=== PATIENT | male | born 2005 | race Caucasian/White ===

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

== ENCOUNTER 2025-04-03 08:28 | Emergency (ER) | payer OTHER, SELFPAY ==
--- NOTE | ~2025-04-03 | XR_ITS ---
CLINICAL HISTORY: shoulder pain rad down arm 4 view left shoulder Comparison: None provided Findings: No fracture or dislocation. No significant osteoarthritis. IMPRESSION: 1. No acute findings. This document has been electronically signed by: Johnathan Hill DO on 04/03/2025 10:19:39
[2025-04-03 08:31] VITALS: BP 138/86; PULSE 59; RESP 16; TEMP 36.7; O2SAT 99; BMI 25.9
--- NOTE | 2025-04-03 08:43 | ED_ITS ---
HPI - Extremity Problem General Chief complaint: Extremity Injury, Upper Stated complaint: shoulder pain rad into chest Time Seen by Provider: 04/03/25 08:37 Source: patient Mode of arrival: ambulatory Limitations: no limitations History of Present Illness ED Provider: SALENA MARIN PA-C HPI Narrative: 20 year old male presents to the ED today for evaluation of left shoulder pain x5 months. Pain initially began after he spent the day kayaking. Since this time has had difficulty/ pain with moving the left shoulder. Reports waking up with tingling down his LUE. He was evaluated at a few months ago where they noted concern for rotator cuff injury. He was not referred to ortho at that time. Denies blunt injury/trauma. Denies fever, chills, rashes. Related Data Home Medications ?Medication ?Instructions ?Recorded ?Confirmed acetaminophen 500 mg capsule 1,000 mg PO Q6H PRN 04/1104/18/25 esomeprazole magnesium 40 mg 40 mg PO BID 04/11/25 capsule,delayed release ibuprofen 200 mg tablet 400 mg PO Q8H 04/11/2504/18 Allergies Allergy/AdvReac Type Severity Reaction Status Date / Time amoxicillin Allergy Severe Anaphylaxis Verified 04/18/25 15:13 Review of Systems Review of Systems: Yes all other systems are reviewed and are negative PMFSH Past Medical History Attestation statement: The following information was validated with the patient. Source: old records reviewed and nursing notes reviewed Medical History Healthcare maintenance Chronic abdominal pain Annual physical exam Thyroid nodule LUQ abdominal pain LLQ abdominal pain Gait disturbance Unsteadiness on feet Family History Family History Paternal Grandfather HTN (hypertension) Social History Social History Household Members: Family Housing: House Alcohol intake: current Alcohol intake frequency: a few times a month Patient Tobacco Use Status: Never used Tobacco Substance Use Type: Marijuana service: No Current occupational status: employed Cognitive needs: No Hearing needs: No Vision needs: No Physical Exam Vital Signs: Vital Signs: Last Vital Signs Temp 98.1 F 04/03/25 10:39 Pulse 59 04/03/25 10:39 Resp 16 04/03/25 10:39 BP 138/86 04/03/25 10:39 Pulse Ox 99 04/03/25 10:39 O2 Del Method Room Air 04/03/25 10:39 BMI result Body Mass Index 25.9 vital signs stable General: Well appearing, in no acute distress. Skin: Warm, dry, intact. No rashes or lesions. Head: Normocephalic, atraumatic. EENT: Hearing is intact b/l. Conjunctiva clear. PERRLA. EOM intact. Moist mucous membranes.? Neck: Supple without LAD Cardiac: Chest wall symmetric. RRR Lungs: Normal respiratory effort without accessory muscle use. CTA bilaterally Ext: +no noted swelling, skin changes to left shoulder/upper extremity. FROM intact to L shoulder w/ pain induced on active extension/ abduction, no limitation. 2+radial pulse. Neuro: AOx3. Normal speech. Ambulating with steady gait Course Course Course Narrative: xr left shoulder without fracture, dislocation. Medicated w/ valium and prednisone with improvement. Likely rotator cuff injury. placed in sling. plan to send muscle relaxer and prednisone. advised ortho follow up - referral provided. Patient has remained stable throughout ED visit today. Discussed worrisome signs and symptoms and when to return to the ED. All questions answered at this time. Patient is agreeable with disposition and stable for discharge. Medications Administered Discontinued Medications Generic Name Dose Route Start Last Admin Trade Name Freq PRN Reason Stop Dose Admin Diazepam 5 mg 04/03/25 09:32 04/03/25 09:59 Diazepam 5 Mg Tablet PO 04/03/25 09:33 5 mg ONCE ONE Administration Prednisone 40 mg 04/03/25 09:33 04/03/25 09:59 Prednisone 20 Mg Tablet PO 04/03/25 09:34 40 mg ONCE ONE Administration Medical Decision Making Medical Decision Making MDM Narrative: 20 year old male presents to the ED today for evaluation of left shoulder pain x5 months. vital signs stable, afebrile. On exam, no noted swelling, skin changes to left shoulder/upper extremity. FROM intact to L shoulder w/ pain induced on active extension/ abduction, no limitation. 2+radial pulse. Differential diagnosis includes msk sprain/strain, contusion, fracture, dislocation, tendonitis, bursitis Unlikely NV compromise, threat to limb, compartment syndrome. Plan for xrs, pain control and re-evaluation. Differential Diagnosis Differential Diagnoses: The differential diagnosis associated with the presentation includes as above. Admission/Observation not indicated Independent Interpretation I performed an independent interpretation of an: Plain X-Ray Interpretation: xr left shoulder w/o fracture Radiology Impression Discussion of test interpretation with radiology: I have reviewed the radiologist's reading. Radiologist Impression: Procedure(s): XR shoulder LT min 2V Accession Number(s): [id number] cc: Physician,Unknown ; Salena Marin~ Reason for Exam: shoulder pain rad down arm CLINICAL HISTORY: shoulder pain rad down arm 4 view left shoulder Comparison: None provided Findings: No fracture or dislocation. No significant osteoarthritis. IMPRESSION: 1. No acute findings. This document has been electronically signed by: Johnathan Hill DO on 04/03/2025 10:19:39 Independent Historian Clinical information obtained from an independent historian. History obtained from or confirmed by: Parent Prescription Management I considered prescription management with: Pain Medication Social Determinants Patient?s care significantly limited by Social Determinants of Health including: Other Social Determinant of Health Procedures Orthopedic Splinting/Casting Injury #1: Side: left Upper Extremity Injury Location: shoulder Upper Extremity Immobilizer: sling/shoulder immobilizer Critical Care Time Critical Care Time Critical Care Time: No Discharge Plan Discharge Clinical Impression: Left shoulder pain Patient Disposition: Home, Self-Care Instructions: Rotator Cuff Injury (ED) Additional Instructions: You were evaluated in the ED today for left shoulder pain. The x-ray of your left shoulder does not demonstrate an acute fracture. I have suspicion for rotator cuff injury. I am sending prednisone, a steroid, to your pharmacy. Take this as prescribed over the next 4 days starting tomorrow as you received a dose in the ED today. Methocarbamol is a muscle relaxer that has been sent to your pharmacy. You may take this as needed for muscle pain. I have placed your arm in a sling for comfort. Make sure to remove your arm and move your shoulder around multiple times throughout the day to prevent frozen shoulder. Please follow up with either PCP or landscape specialist, you will probably require an MRI. I have provided you with a referral. Call them to establish care. They will not call you. Return with any new or worsening symptoms. In the case of an emergency call 911. Prescriptions: No Action esomeprazole magnesium 40 mg capsule,delayed release(DR/EC) 40 mg PO BID ibuprofen 200 mg tablet 400 mg PO Q8H acetaminophen 500 mg capsule 1,000 mg PO Q6H PRN Referrals: [facility] [place] [facility] [Provider Group] Physician,Unknown J [Primary Care Provider, Medical] Stand Alone Forms: Work/School Release Interventions: ED Discharge Assessment Last Done: 04/03/25 10:39 Discharge Date/Time: 04/03/25 10:39 Print Language: Kiswahili
--- OUTSIDE RECORDS SUMMARY | 2025-04-03 09:47 | XMS_ITS | Encounter Summary ---
Author Organization [facility] Address [address] [place] [address] Phone Care Team Providers Care Director Of Laboratory Operations Name Role Phone Dalila Snyder MD Primary Care Provider [phone] Encounter Details Date Type Department Care Team (Late st Contact Info) Description 02/05/2017 Conversion Encounter [facility] [place] [address] [place] [address] Social History Tobacco Use Types Packs/Day Years Used Date Smoking Tobacco: Never Assessed Sex and Gender Information Value Date Recorded Sex Assigned at Male 12/02/2019 11:05 AM EDT Legal Sex Male 5:10 PM EDT Gender Identity Male 12/02/2019 11:05 AM EDT Sexual Orientation Straight 12/02/2019 11 :05 AM EDT documented as of this encounter Plan of Treatment Not on file documented as of this encounter Visit Diagnoses Not on filedocumented in this encounter Care Teams Director Of Laboratory Operations Relationship Specialty Start Date End Date Dalila Snyder MD [address] [place] [address] PCP - General Pediatrics 08/07/22 04/06/24 documented as of this encounter
--- OUTSIDE RECORDS SUMMARY | 2025-04-03 09:47 | XMS_ITS | Clinical Summary ---
Author Organization [facility] Address [address] [place] [address] Phone Care Team Providers Care Inseminator Name Role Phone Unavailable Primary Care Provider Unavailabl e Allergies Active Allergy Reactions Criticality Noted Date Comments Amoxicillin Rash Low Medications ibuprofen 200 MG capsule Take 200 mg by mouth every 6 (six) hours as needed. Active esomeprazole 40 MG capsule Take 40 mg by mouth 2 (two) times a day. 09/10/2023 Active Active Problems Problem Noted Date Diagnosed Date Epigastric pain 02/24/2022 Overview (03/07/2024): LIDIA & IBS s/s yet unintentional wt loss of 8lb; GI labs obtained essentially unremarkable x albumin 5.3 & unclear signficance; pt place on H2 muna and advise f/u w/ his new PCP in 6 weeks [facility] visit on 08/18/2022 for abdominal pain, postprandial abdominal bloating and weight loss. Dx with GERD - avoid dietary triggers and start Omeprazole. Sent for H pylori testing, transglutaminase to r/o celiac, vitamin D, RAST allergen testing. avoid lactose, low FODMAP diet follow up in 5 weeks Seen by GI on 01/13, normal EGD with negative biopsy for celiac on 01/23. Continue Prilosec. Discontinue vaping, marijuana, and alcohol use. 03/07/2024 Has f/u with GI in August. Assessment & Plan (03/07/2024 4:12 PM EDT): Followed by [facility] GI for abdominal pain, postprandial abdominal bloating and weight loss. Dx with GERD - avoid dietary triggers. normal EGD with negative biopsy for celiac on 01/23. Continue Prilosec. Discontinue vaping, marijuana, and alcohol use. Continue Esomeprazole 40 mg bid. f/u with GI in August. Assessment & Plan (03/02/2023 9:22 AM EDT): [facility] GI visit on 08/18/2022 for abdominal pain, postprandial abdominal bloating and weight loss. Dx with GERD - avoid dietary triggers and start Omeprazole. Sent for H pylori testing, transglutaminase to r/o celiac, vitamin D, RAST allergen testing. avoid lactose, low FODMAP diet follow up in 5 weeks Seen by GI on 01/13, normal EGD with negative biopsy for celiac on 01/23. Continue Prilosec. Discontinue vaping, marijuana, and alcohol use. Assessment & Plan (02/24/2022 9:08 AM EDT): LIDIA & IBS s/s yet unintentional wt loss of 8lb; GI labs obtained essentially unremarkable x albumin 5.3 & unclear signficance; pt place on H2 muna and advise f/u w/ his new PCP in 6 weeks Resolved Problems Problem Noted Date Diagnosed Date Resolved Date Sunburn, blistering 11/24/2023 03/07/20 24 Assessment & Plan (11/24/2023 4:49 PM EDT): Antibiotic ointment with bandage applied. Continue dressing changes bid until healed. Follow up if s/s of infection as reviewed. Avoid sun exposure until healed then sunscreen. Reviewed importance of sunscreen and reapplying every 90 minutes. Disease due to severe acute respiratory syndrome coronavirus 2 (SARS-CoV-2) 06/30/202202/20 Overview (08/28/2022): 06/30/2022 Problem added by Discern Expert Acne vulgaris 10/22/2017 03/02/2023 Assessment & Plan (10/29/2018 3:08 PM EDT): Uses stridex and noxema Lactose intolerance 10/19/2017 03/02/20 23 Overview (12/02/2019): Significant family history lactose intolerance. Discussed diet and import of not drinking too much milk Recommended trial off milk and using lactaid products. Assessment & Plan (12/02/2019 11:49 AM EDT): Mom describeds significant gassiness and drinking lots of milk. Significant family history lactose intolerance. Discussed diet and import of not drinking too much milk Recommended trial off milk and using lactaid products. Assessment & Plan (10/19/2017 5:35 PM EDT): Handout given and discussed Acute suppurative otitis med ia of both ears without spontaneous rupture of tympanic membranes 03/06/2017 10/19/2017 Immunizations Immunization Administration Dates Next Due DTaP 5 05/03/2007, 5,2003,07/20,2003 HPV Vaccine 9 Valent 09/27/2015 HPV, Quadrivalent 09/18/2014 Hep A, ped/adol 09/27/2015,09/18/2014 Hep B, ped/adol 2003,2003,2003 Hib (HbOC) 06/27/2004 Hib (PRP-T) 2003,2003,2003 IPV 05/03/2007, 4,2003,05/22 Influenza, injectable, quadr ivalent, preservative free 05/04/2020 Influenza, injectable, trivalent 05/08/2008,02/21,06/27/2004 MMR 03/21/2004 MMRV 05/03/2007 Meningococcal B Trumenba 02/19/2022,12/05/2020 Meningococcal Conj (Menactra) MCV4P 12/02/2019,0 09/18/2014 Pneumococcal Conjugate 06/27/2004,2003,06/2002 Tdap 02/25/2023,09/18/2014 Varicella 03/21/2004 Family History Medical History Relation Name Comments Arthritis Maternal Grandfather Hyperlipidemia Maternal Grandfather Hypertension Maternal Grandfather Aneurysm Paternal Grandfather Emphysema Paternal Grandfather Heart disease (Premature) Paternal Grandfather Hypertension Paternal Grandfather Kidney disease Paternal Grandfather Prostate cancer Paternal Grandfather Hyperlipidemia Paternal Grandmother Hypertension Paternal Grandmother Relation Name Status Comments Father Sajan Mcleod Alive Father: vis ual problems Maternal Grandfather Mother Crissy Mcleod Alive Mother: Alive and well Other Family history of *Heart Disease, Family history of Cancer -breast, No family history of *Thrombophilia, Family history of Hypertension, Family history of *Dental caries, No family history of *Sudden /NE under 55, Family history of Hyperlipidemia, No family history of *CVA/Stroke Paternal Grandfather Paterna l grandfather: Coronary artery disease, premature Paternal Grandmother Sister Brenda Izquierdo Alive Sister: Edouard e and well Social History Tobacco Use Types Packs/Day Years Used Date Smoking Tobacco: Never Smokeless Tobacco: Never Tobacco Cessation:Counseling Given: Yes Alcohol Use Standard Drinks/Week Comments Never 0 (1 standard drink = 0.6 oz pur e alcohol) Hunger/Food Answer Date Recorded In the last 12 months, did y ou or your family ever eat less than you felt you should because there wasn't enough money for food? No 03/02/2023 Stable Housing Answer Date Recorded Are you worried that in the next 2 months you may not have stable housing? No 03/02/2023 Transportation Concerns Answer Date Rec orded In the last 12 months, have you or your family ever had to go without healthcare because you didn't have a way to get there? No 03/02/2023 Hazards in Home Answer Date Recorded Think about the place you li ve. Do you have problems with any of the following? Pests (mice or roaches), mold, no/not working smoke detectors, water leaks, no window guards. No 2022 Financing Utilities Answer Date Recorde d In the last 12 months, has t he electric, gas, oil, or water company threatened to shut off your services in your home? No 03/02/2023 Safety at Home Answer Date Recorded Are you or your family worried about feeling saf e in your home? No 03/02/2023 Outside Support Answer Date Recorded Do you feel that you need mo re support from other people or programs to help you care for yourself or your family? No 03/02/2023 Understanding Health Concerns Answer Da te Recorded Do you need help understandi ng your or your child's healthcare needs (diagnosis, medications, plan, etc.)? No 03/02/2023 Financing Health Concerns Answer Date R ecorded In the last 12 months, was t here a time when your child needed to see a doctor or get medications or supplies but could not because of cost? No 03/02/2023 Missing School or Work Answer Date Ye rded Did you or your child miss s chool or work because of a health problem that could have been avoided? No 03/02/2023 Sex and Gender Information Value Date Recorded Sex Assigned at Male 12/02/2019 11:05 AM EDT Legal Sex Male 5:10 PM EDT Gender Identity Male 12/02/2019 11:05 AM EDT Sexual Orientation Straight 12/02/2019 11 :05 AM EDT Last Filed Vital Signs Vital Sign Reading Time Taken Comments Blood Pressure 120/70 03/07/2024 4:12 PM EDT man ual Pulse 61 03/07/2024 3:27 PM EDT Temperature 36.2 C (97.1 F) 03/07/2024 3:27 PM EDT Respiratory Rate - - Oxygen Saturation - - Inhaled Oxygen Concentration - - Weight 94.6 kg (208 lb 9.6 oz) 03/07/2024 3:27 P M EDT Height 185.4 cm (6' 1 ) 03/07/2024 3:27 PM EDT Body Mass Index 27.52 03/07/2024 3:27 PM EDT Plan of Treatment Health Maintenance Due Date Last Done Comments Influenza Vaccines (#1) 2025 05/04/20 20, 05/08/2008, 2007, Additional history exists COVID-19 Vaccine (3 - 2024-2 6 season) 2025 11/01/2020, 10/11/2020 DTaP,Tdap,and Td Vaccines (8 - Td or Tdap) 02/25/2033 02/25/2023, 09/18/2014, 05/03/2007, Additional history exists Hepatitis B Vaccines Completed 2003, 2003, 2003 HIB Vaccines Completed 06/27/2004, 06/2003, 2003, Additional history exists Pneumococcal Vaccine Completed 06/27/2004, 2003, 2003 IPV Vaccines Completed 05/03/2007, 06/2003, 2003, Additional history exists MMR Vaccines Completed 05/03/2007, 03/21/2004 Varicella Vaccines Completed 05/03/2007, 03/21/2004 HPV Vaccines Completed 09/27/2015, 09/18/2014 Hepatitis A Vaccines Completed 09/27/2015, 09/19/19 15 Meningococcal Vaccine Completed 12/02/2019, 015 Men B Vaccine Completed 02/19/2022, 12/05/2020 Insurance COMMERCIAL
[2025-04-03 10:39] VITALS: BP 138/86; PULSE 59; RESP 16; TEMP 36.7; O2SAT 99
== END 2025-04-03 10:39 | disposition home or self-care (01) ==
PROVIDERS: Emergency Provider Emergency Medicine
DX: M25.512 Pain in left shoulder (principal); Z87.828 Personal history of other (healed) physical injury and trauma
CPT/HCPCS: 73030; 99283; 99284

== ENCOUNTER → 2025-04-03 08:45 | Outpatient (BNV) | payer OTHER, SELFPAY | PROVIDERS: Emergency Provider Emergency Medicine; Visit Provider Radiology Diagnostic Radiology | DX: M25.512 Pain in left shoulder (principal) | CPT/HCPCS: 73030 ==

== ENCOUNTER 2025-04-11 10:50 | Outpatient (AMB) | payer OTHER, SELFPAY ==
--- NOTE | 2025-04-11 10:52 | MHC.OFFVIS ---
Vital Signs 04/11/25 10:57 Height 6 ft 2 in Weight 201 lb BMI 25.8 Handedness Right Intake Visit Reasons: ED F/U: Left shoulder pain DOI ~November Intake Note: Elroy is a 20 year old right hand dominant male who presents today for an emergency department follow up for his left shoulder injury. Patient reports his symptoms initially started after a day of kayaking. States that since this day he has had difficulty and pain with movement of the left shoulder. He states his ED visit was the day his pain was at its worse. He also was seen at [facility] urgent care and they told him they believe it is a pinched nerve, says they were unsure and advised he still follow up with today's visit. He is experiencing tingling that starts in the left shoulder radiating down into his elbow, then it stops and starts tingling again in the wrist. He is having continued intermittent pain with lifting and certain ROM. Pain is located along the superior and lateral aspects of his shoulder. Takes Tylenol and/or ibuprofen as needed for pain, with mild to moderate relief. He has been out of work since 04/03/25 due to needed evaluation from our office. Reports at work he has had incidents where his shoulder freezes with lifting above head or reaching causing him to have increased pain. He is due to start formal physical therapy later this week. Allergies amoxicillin Allergy (Severe, Verified 04/11/25 10:57) Anaphylaxis Medication List - Last Reconciled 04/11/25 by Marcelino Stapleton MD acetaminophen 1,000 mg PO Q6H PRN esomeprazole magnesium 40 mg PO BID ibuprofen 400 mg PO Q8H PFSH Family History (Updated 08/18/22 @ 15:36 by Jean Barksdale) Paternal Grandfather HTN (hypertension) Social History (Updated 04/11/25 @ 11:03 by RODDY Knott) Household Members: Family Alcohol intake: current Alcohol intake frequency: a few times a month Patient Tobacco Use Status: Never used Tobacco e-Cigarette/Vaping Use: Currently Using Current occupational status: employed 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[employer] Physical Exam Vital Signs: BMI result Body Mass Index 25.8 Const Other: Well-nourished well-developed very friendly male awake alert and oriented x3 in no acute distress Extrem Other: Left shoulder examination shows almost full range of motion when compared to his right shoulder, 5/5 strength with supraspinatus testing, positive impingement signs, no instability Results Reviewed Results Reviewed: X-rays of the patient's left shoulder show mild acromioclavicular joint narrowing, a type 2 acromion, no acute bony abnormalities Assessment & Plan Assessment & Plan (1) Left shoulder pain: Code(s): M25.512 - Pain in left shoulder Category: Medical Plan Elroy presents with left shoulder pain due to impingement syndrome as well as neck pain which radiates into his left arm possibly due to cervical stenosis. I did give the patient a prescription for a Medrol Dosepak. Will begin physical therapy as scheduled. The do's and don'ts of lifting were discussed at length with the patient. The patient can return to work once his symptoms have improved. Will contact me prior to his follow-up appointment in 2-3 months should his symptoms worsen in any way. I spent 20 minutes in reviewing the patient's records and imaging studies, seeing the patient and documenting in the medical record. Medications: New methylprednisolone (Medrol (Mihai)) PO PER PKG DIR 21 ea 0RF Coding Level of Care Code New Pt Level 3 (44298) Complex EM visit Add On G2211 Diagnoses Left shoulder pain M25.512
[2025-04-11 10:57] VITALS: BMI 25.8
--- OUTSIDE RECORDS SUMMARY | 2025-04-11 13:15 | XMS_ITS | Encounter Summary ---
Author Organization [facility] Address [address] [place] [address] Phone Care Team Providers Care New Accounts Representative Name Role Phone Dalila Snyder MD Primary Care Provider [phone] Encounter Details Date Type Department Care Team (Late st Contact Info) Description 02/05/2017 Conversion Encounter [facility] [place] [address] [place] [address] Social History Tobacco Use Types Packs/Day Years [...] on filedocumented in this encounter Care Teams New Accounts Representative Relationship Specialty Start Date End Date Dalila Snyder MD [address] [place] [address] PCP - General Pediatrics 08/07/22 04/06/24 documented as of this encounter
--- OUTSIDE RECORDS SUMMARY | 2025-04-11 13:16 | XMS_ITS | Clinical Summary ---
Author Organization [facility] Address [address] [place] [address] Phone Care Team Providers Care College Specialist Name Role Phone Unavailable Primary Care Provider [...] w/ his new PCP in 6 [place] [facility] [place] for abdominal pain, [...] Plan (03/07/2024 4:12 PM EDT): Followed by [facility] for abdominal pain, postprandial abdominal bloating and weight loss. Dx with GERD - avoid dietary triggers. normal EGD with negative biopsy for celiac on 01/23. Continue Prilosec. Discontinue vaping, marijuana, and alcohol use. Continue Esomeprazole 40 mg bid. f/u with GI in August. Assessment & Plan (03/02/2023 9:22 AM EDT): [facility] [place] on 08/18/2022 for abdominal pain, [...] *Dental caries, No family history of *Sudden /[place] under 55, Family history of Hyperlipidemia, No [...]
--- OUTSIDE RECORDS SUMMARY | 2025-04-11 13:16 | XMS_ITS | Data Portability ---
Author Organization [facility] [address] [place] [address] Assessment No assessment recorded. Plan of Treatment Reminders Order Date Submit Date Provider Last Modified By Organization Details Last Modified Time Details Appointments None recorded. Lab None recorded. Referral physical therapist referral - cervical stabilizati on program 2024 025 [email or web address] Not available 13:12:59 Procedures None recorded. Surgeries None recorded. Imaging XR, cervical spine, 1 view - new pt 2 views c spine rm u/c 1 2024 025 [email or web address] [facility], [address], [address], [place], [address], 5 13:12:59 XR, shoulder, 2 or more view - new pt 4 views left shoulder rm u/c 1 2024 025 [email or web address] [facility], [address], [address], [place], [address], 5 13:12:59 Medication Orders cyclobenzap rine 5 mg tablet 2024 025 [email or web address] [id number], [address], [place], [address], 5 13:12:59 Patient TargetsNo targets recorded. Patient InstructionsNo instructions recorded. Reason for Referral Physical Therapist Referral for Nerve root disorder cervical stabilization program Referring Physician: Yair Thomas, Orthopedic Surgery, Encounter Date: 04/05/2025 Results Created Date Observation Date Name Description Value Unit Range Abnormal Flag Note LastModifiedBy Organization Detail LastModifiedTime 04/05/2004/05/2025 XR, seth yue, 2 or more view http:/ [email or web address] ?Encry pted=s hAaTro YD8dLq bEUv6g %2BXZw aYqtaq 0bqfl% 2Fg9IQ a4ajBk vP9nXo QUaueC m3YtLR FvZlgJ JJ8mAn HZtai3 1n4115 AC0Klb XWMUKW uKiQtr MwF INTERFACE [facility] [address], [place], [address], 04/05/2025 09:28:30 04/05/2004/05/2025 XR, seth yue, 2 or more view http:/ [email or web address] ?Encry pted=s hAaTro YD8dLq bEUv6g %2BXZw aYqtaq 0bqfl% 2Fg9IQ a4ajBk vP9nXo QUaueC m3YtLR FvZlgJ JJ8mAn HZtai3 5a6208 AC0Klb XWMUKW uKiQtr MwF INTERFACE [facility] [address], [place], [address], 04/05/2025 09:28:32 04/05/2004/05/2025 XR, cervi ruy spine , 1 view http:/ [email or web address] ?Encry pted=s hAaTro YD8dLq bEUv6g %2BXZw aYqtaq 0bqfl% 2Fg9IQ a4ajBk vP9nXo QUaueC m3YtLR FvZlgJ JJ8mAn HZtai3 6b7734 AC0Klb XWMUqu nKiQtr MwF INTERFACE [facility] [address], [place], [address], 04/05/2025 09:45:51 04/05/20 25 04/05/2025 XR, cervi ruy spine , 1 view http:/ [email or web address] ?Encry pted=s hASuno YD8dLq bEUv6g %2BXZw aYqtaq 0bqfl% 2Fg9IQ a4ajBk vP9nXo QUaueC m3YtLR FvZlgJ JJ8mAn HZtai3 5s0906 AC0Klb XWMUqu nKiQtr MwF INTERFACE [facility] [address] [facility] [address], [place], [address], 04/05/2025 09:45:52 Result Notes Documentation Provider Name and Address Organization Details Recorded Time Xr, Shoulder, 2 Or More View : [email or web address]? Encrypted=dbGvGiiYO2yZfdX Uv6g%8PGQohBomzb8qiff%2Fg 2LAx8ovLfnA9eHqZTpmvEx9Ud HGJfZaeMWH1nMhJZons81t680 2WF5SiaCIKGVCmXyIosBwQ Not Available [facility] 04/05/2025 09:28: 31 Xr, Shoulder, 2 Or More View : [email or web address]? Encrypted=oiRvQykQC2qJhdI Uv6g%1MXRzoGihzd8wlci%2Fg 6UZp0rqLdwG6jIqTDvxgYf4Ec DZCuDdfGYS3lIiVUasa69q309 2TM2SzzBRIJAPuIjAdsPgX Not Available [facility] 04/05/2025 09:28: 32 Xr, Cervical Spine, 1 View : [email or web address]? Encrypted=jfEaIdrEH0pYtkM Uv6g%0SJRoxAxzen4bhbj%2Fg 9APl7zlOjpI8kSgYEcwdHt0Ng JMHfGcxZRF8aCnZAppa66m444 1DM0RfkLIPEapwFuRnlDdN Not Available [facility] 04/05/2025 09:45: 51 Xr, Cervical Spine, 1 View : [email or web address]? Encrypted=wyPfUyjSW1gPqxR Uv6g%1LNZruAemzq2urxs%2Fg 3TEb6aaElyN7vYpZVeovQj2Ef CUJeLqzNJD1cLxPRjri95f832 9YE2EluUXOKfwkZhRaaDfP Not Available [facility] 04/05/2025 09:45: 53 Medical Equipment None Reported. Allergies Allergen ID Allergen Name Allergen Category Reaction Reaction Severity Criticality Documentation Date Start Date Code Code System Note Provider Name and Address Organization Details Recorded Time 440557 amoxicill in medicatio n Not available Not available Not available 04/05/2025 723 [facility] 09:21:42 Medications Name Sig Start Date Stop Date Status Note LastModified by Organization Details LastModified Time esomeprazole magnesium 40 mg capsule,delay ed release TAKE 1 CAPSULE BY MOUTH TWICE A DAY active Not Available Not Available No t Available albuterol sulfate HFA 90 mcg/actuation aerosol inhaler INHALE 2 PUFFS INTO LUNGS EVERY 4 TO 6 HOURS FOR SHORTNESS OF BREATH OR WHEEZING active Not Available Not Available No t Available ondansetron 4 mg disintegratin g tablet TAKE 1 TABLET BY MOUTH EVERY 6 HOURS FOR NAUSEA AND VOMITING FOR 3 DAYS active Not Available Not Available N ot Available cyclobenzapri ne 5 mg tablet Take 1 tablet 3 times a day by oral route for 7 days. 2024 active Not Available Not Available Not Avai lable Vitals Date Recorded Body height Body mass index (BMI) Body weight Provider Name and Address Organization Details Last Updated DateTime 04/05/2025 187.96 cm 30.8 kg/m2 716625.17 g Jocelyn Papallo [facility] 04/05/2025 09:57:40 Social History None recorded. Functional Status None recorded. Mental Status None recorded. Family History Nothing Reported. Medical History No medical history recorded. Past Encounters Encounter ID Performer Location Encounter Start Date Encounter Closed Date Diagnosis/Indication Diagnosis SNOMED-CT Code Diagnosis ICD10 Code Diagnosis IMO Codes Diagnosis Note [id number] Yair Thomas PA-C [facility] [place] [address] [place] [address] 04/05/2025 09:15:01 04/05/2025 09:54:29 Pain of left shoulder region 0303270601 M25.512 11610400 Neck pain 65319252 M54.2 86856 Nerve root disorder 7227 4001 M54.12 704352 Health Concerns Section Related Observation LastModified by Organization Detai ls LastModified Time None Recorded Concern Status LastModified by Organization Details LastModified Time None Recorded Advance Directives Directive None Recorded Payers Insurance Date Sequence Insurance Name Policy Number Policy Chowdary Covered Member ID Chowdary Member ID Guarantor Name 04/05/[address] [place] [address] ([facility]) [id number] Elroy Izquierdo [id number] Elroy Izquierdo Notes Date Note Type Note Provider Name and Address Organization Details Recorded Time text/htm l I am seeing the patient today under the supervision of dr Cha who was available but who did not see the patient. D X: Left cervical radiculopathyImpingement syndrome left shoulder H PI: 20-year-old male here for orthopedic consultation. He is complaining of left-sided neck pain that radiates into the deltoid and down into his fingers. He is complaining of intermittent numbness tingling to all of his fingers. Symptoms started few days ago. He was seen at [facility] on 04/03/2025. 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 He reports no relief with the steroids lief. He has scheduled follow-up with [facility] P ast family, medical, social history and review of systems has been reviewed, updated and is located in the patient s chart. E xamination: Cervical - A+O x3 non antalgicNo TTP of the cervical spinous processesNo palpable step offNo paracervical muscle TTPLimited ROM in all planes+ Left Spurling testFROM elbow, forearm, wrist, and digits5/5 classification and treatment director strengthIntact R,M,U nerve motor and sensory function Left shoulder-No soft tissue swelling, erythema, ecchymosisNo atrophy of the supraspinatus or infraspinatus fossasNo TTP distal clavicle, ACJ, acromion+ Pablo signFF 90 degrees and Abduction 90 degrees with notable painExternal rotation 40 degreesInternal rotation pelvis with notable pain anteriorly4/5 strength Abduction/internal rotation to resistance5/5 strength Ext rotation to resistance5/5 strength Internal rotation to resistance / belly press testingN/V intact X -rays ordered, obtained and reviewed at [facility] 4 views right shoulder reveals type I/II acromion. 2 views of the cervical spine I mpression/Plan : Findings and the situation discussed. Treatment options were discussed. patient appears to have a mixed picture. He was offered a cortisone injection for his left shoulder but he declined.He will continue with his prednisone taper as prescribed by the emergency room. He was prescribed Flexeril 10 mg p.o. 3 times daily as needed muscle spasms. He will monitor for drowsiness. He was referred to physical therapy for a cervical stabilization program. He may use ice and heat. He will follow-up with [facility] as he has a scheduled appointment on 04/20/2025 Yair Thomas PA-C [address] [place] [address] [address], [place], [address], [facility] [place] [facility] 04/05/2025 09:54:27
== END 2025-04-11 11:22 | disposition home or self-care (01) ==
LOC: HO.HOS 10:51
PROVIDERS: Visit Provider Orthopaedic Surgery
DX: M25.512 Pain in left shoulder (principal)
CPT/HCPCS: 99203; G2211

== ENCOUNTER 2025-04-18 14:42 | Outpatient (AMB) | payer OTHER, SELFPAY ==
--- NOTE | 2025-04-18 14:55 | MHC.PC.OV ---
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 Closed Molds Required: No Accompanied by: Self / Same As Patient Allergies amoxicillin Allergy (Severe, Verified 04/18/25 15:13) Anaphylaxis Medication List - Last Reconciled 04/18/25 by Nkechi Arias PA-C acetaminophen 1,000 mg PO Q6H PRN esomeprazole magnesium 40 mg PO BID ibuprofen 400 mg PO Q8H Tobacco use date assessed: 04/18/25 Dental Screening Dental Screen Date: 04/18/25 Did you have a dental visit in the last 12 months?: Yes Did you have a dental problem in the last 6 months where you did not have access to dental care?: No Was dental information given to patient?: Patient has dentist HPI [facility] HPI Details The patient is a 20-year-old [facility]. His last physical and blood work were two years ago. The patient reports feeling like he is swaying back and forth when standing, which he first noticed about a month ago. He denies any associated dizziness or falls. He also complains of back pain and pain when trying to straighten his posture. 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 He has a history of left shoulder pain and was previously seen by an orthopedist who diagnosed him with impingement syndrome and possible cervical stenosis causing neck pain radiating to his left arm. He was prescribed a Medrol Dosepak and physical therapy, and shoulder x-rays were performed, but no MRI was ordered. The patient reports a history of chronic left upper quadrant abdominal pain that radiates to the left lower quadrant since he was [age] years old. The pain is constant, varying in intensity, but never fully resolves. He was previously evaluated by a nutrition services aide who suspected cannabinoid hyperemesis syndrome (CHS); however, a two-week cessation of cannabis did not improve his symptoms. A prior endoscopy with biopsy was negative, and a colonoscopy was not performed. Additionally, the patient notes difficulty swallowing, which occurs with both fluids and air. His current medications include escitalopram and omeprazole. He denies any family history of colon, breast, prostate, or skin cancer. 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 - Alcohol Use: Reports drinking on weekends but denies it is excessive. - Substance Use: Past diagnosis of suspected cannabinoid hyperemesis syndrome. - He reports having stopped for two weeks previously with no improvement in symptoms, and has since resumed use. [facility] Medical History (Updated 04/18/25 @ 16:41 by Nkechi Arias PA-C) Healthcare maintenance Chronic abdominal pain Annual physical exam Thyroid nodule LUQ abdominal pain LLQ abdominal pain Gait disturbance Unsteadiness on feet Family History Paternal Grandfather HTN (hypertension) Social History Household Members: Family Housing: House Alcohol intake: current Alcohol intake frequency: a few times a month Patient Tobacco Use Status: Never used Tobacco Substance Use Type: Marijuana service: No Current occupational status: employed Cognitive needs: No Hearing needs: No Vision needs: No Questionnaire PHQ-9 Over the last 2 weeks, how often have you been bothered by any of the following problems? 1. Little interest or pleasure in doing things: not at all 2. Feeling down, depressed, or hopeless: not at all 3. Trouble falling or staying asleep, or sleeping too much: not at all 4. Feeling tired or having little energy: not at all 5. Poor appetite or overeating: not at all 6. Feeling bad about yourself - or that you are a failure or have let yourself or your family down: not at all 7. Trouble concentrating on things, such as reading the newspaper or watching television: several days 8. Moving or speaking so slowly that other people could have noticed. Or the opposite - being so fidgety or restless that you have been moving around a lot more than usual: not at all 9. Thoughts that you would be better off or of hurting yourself in some way: not at all Total score: 1 Depression Screening Interpretation: Negative Depression Screening Done: Yes 13594 - PHQ-9 Billing: Yes Source: Developed by Vanessa BecerrilW. Jatin, Anton Tipton and colleagues, with an educational jessica from [employer]. Thrive Questionnaire Date Thrive assessed: 04/18/25 I am a: Patient What is your living situation today?: I have a steady place to live Within the past 12 months, did the food you bought not last and you didn't have the money to get more?: Never true Within the past 12 months, did you worry whether your food would run out before you got money to buy more?: Never true Do you have trouble paying for medicines?: No Do you have trouble getting transportation to medical appointments?: No Do you have trouble paying your heating and electricity bill?: No Do you have trouble taking care of your child, family member or friend?: No Do you have trouble with day-to-day activities such as bathing, preparing meals, shopping, managing finances, etc.?: No Are you currently unemployed and looking for a job?: No Are you interested in more education?: No Please select the resources that you would like help with: None THRIVE Score: 0 AUDIT C Alcohol Use Questionnaire (AUDIT-C) 1. How often do you have a drink containing alcohol?: 2-4 times a month 2. How many drinks containing alcohol do you have on a typical day when you are drinking?: 1 or 2 3. How often do you have six or more drinks on one occasion?: Never Total Score: 2 Score Reviewed/Action Taken: No RADHA-7 AMB Questionnaire RADHA-7 Date RADHA - 7 assessed: 04/18/25 Feeling nervous, anxious, or on edge: 1 = Several days Not being able to stop or control worryin = Several days Worrying too much about different things: 1 = Several days Trouble relaxin = Not at all Being so restless that it is hard to sit still: 0 = Not at all Becoming easily annoyed or irritable: 0 = Not at all Feeling afraid as if something awful might happen: 0 = Not at all Total RADHA-7 score (0-4 normal; 5-9 mild; 10-14 moderate; 15-21 severe): 3 Source: Developed by Vanessa Becerril Kurt Kroenke and colleagues, with an educational jessica from [employer]. RADHA-7 Assessment Billing RADHA-7 Assessment Tool: RADHA-7 Assessment 02471 Review of Systems Const Details: - Neurological: Reports a swaying sensation and unsteadiness on his feet for the past month. - Denies dizziness, falls, and recent head injury. - Musculoskeletal: Reports back pain and left shoulder pain, which can radiate to the chest area. - Denies leg swelling. - Cardiovascular: Denies chest pain. - Respiratory: Denies shortness of breath. - Gastrointestinal: Reports chronic left upper quadrant abdominal pain since childhood, which is constant but varies in intensity. - Reports dysphagia with fluids and air. - Denies black or bloody stools. - Ears: Reports hearing is okay and denies ear problems. All systems reviewed & are unremarkable except as noted in HPI and below Physical exam (Primary Care) Vital Signs: Last Vital Signs Temp 97.6 F 04/18/25 15:04 Pulse 74 04/18/25 15:04 Resp 16 04/18/25 15:04 BP 121/58 L 04/18/25 15:04 Pulse Ox 98 04/18/25 15:04 Oxygen Delivery Method Room Air 04/18/25 15:04 Care Plan Goal for BP management: <140/90 at Goal BMI result Body Mass Index 27.0 BMI Assessment/Plan discussion: High BMI High, discussed plan: lifestyle, weight reduction, dietary, physical activity, alcohol moderation and other Tobacco/Smoking Status: Tobacco use Status Tobacco use date assessed 04/18/25 04/18/25 15:00 Patient Tobacco Use Status Never used Tobacco 04/18/25 15:07 e-Cigarette/Vaping Use 04/18/25 15:07 PHQ-9: PHQ-9 Score PHQ-9: Total score 1 04/18/25 15:08 Depression Screening Interpretation: Negative Thrive Assessment: Date of Thrive Assessment Date Thrive assessed 04/18/25 04/18/25 15:00 Const Other: Appearance: Alert. Oriented X3. No acute distress. Head: Normal external exam. Normocephalic. Atraumatic. Eyes: Pupils are equal, round, and reactive to light. Extraocular movements intact. Conjunctiva and sclera normal. Eyelids normal. Ears: External auditory canal normal. Tympanic membranes normal. Throat: Pharynx normal. Uvula midline. Moist mucous membranes. Neck: Normal inspection. Neck supple. Full range of motion. No adenopathy. Thyroid Normal. No meningeal signs. No neck mass noted. Possible thyroid nodule noted. Cardiovascular: Normal heart rate and rhythm. Heart sound normal. No murmurs noted. Pulses normal throughout. Respiratory: No respiratory distress. Painless inspiration. Breath sounds normal. No wheezes/rales/rhonchi noted. Chest nontender. No accessory muscle usage noted or decreased air movement noted. Abdomen: Soft and nontender. Bowel sounds normal in all 4 quadrants. No distention noted. No organomegaly noted. No visible injury noted. Chronic pain reported in the left upper quadrant. Back: No costovertebral angle tenderness. Full range of motion noted. Reports back pain when attempting to straighten posture. Skin: Skin warm and dry. Normal skin color. Normal skin turgor. No rashes/lesions/lacerations noted. Extremities: No lower extremity edema. Extremities exhibit normal range of motion. Extremities nontender. Neuro: Oriented X 3. No motor deficit. No sensory deficit. Reflexes normal. Office Procedures Flu Questionnaire Does the patient have a severe egg allergy?: No Does the patient have severe life threatening allergies?: No Does the patient have a fever or illness today?: No Has the patient ever had Guillain-[place] Syndrome?: No Has the patient ever had any past reaction to a flu shot?: No Immunizations Fluarix [id number] (PF) 45 mcg (15 mcg x 3)/0.5 mL IM syringe Performing Provider: Nkechi Arias PA-C Performing Location: [facility] [place] [facility] Documented (not given) by: FABRIZIO Spencer on 04/18/25 15:08 Reason Not Given: Patient Refused Results Reviewed Results Reviewed: - Prior Endoscopy: A previous endoscopy with biopsy did not show any abnormalities. - Prior Imaging: X-rays of the shoulder were previously taken, but no MRI was performed. Coding Level of Care Code New Pt Level 4 (26749) New Pt Prev Care 18-39yr(82822 Diagnoses Annual physical exam Z00.00 Gait disturbance R26.9 Left shoulder pain M25.512 Chronic abdominal pain R10.9; G89.29 Thyroid nodule E04.1 Healthcare maintenance Z00.00 Additional Codes PHQ-9 - 74841 - PHQ-9 Billing: Yes ([id number]) RADHA-7 Assessment Billing - RADHA-7 Assessment Tool: RADHA-7 Assessment 74176 ([id number]) Time Spent (min) 60 Assessment & Plan Assessment & Plan (1) Annual physical exam: Code(s): Z00.00 - Encounter for general adult medical examination without abnormal findings Category: Medical (2) Gait disturbance: Code(s): R26.9 - Unspecified abnormalities of gait and mobility Category: Medical Plan: The patient reports a one-month history of a swaying sensation while standing, without associated dizziness or falls. A CT scan of the head has been ordered to rule out any intracranial abnormalities. The patient was advised to go to the emergency room if the swaying sensation worsens. (3) Left shoulder pain: Code(s): M25.512 - Pain in left shoulder Category: Medical Plan: The patient has a history of left shoulder pain, previously diagnosed as impingement syndrome. An MRI of the left shoulder will be ordered to further evaluate for a possible muscle tear, pending insurance approval. He can continue to use ibuprofen or Tylenol for pain management. (4) Chronic abdominal pain: Code(s): R10.9 - Unspecified abdominal pain; G89.29 - Other chronic pain Category: Medical Plan: The patient reports chronic left upper quadrant abdominal pain that radiates to his left lower quadrant since childhood, with a prior negative endoscopy. A CT scan of the abdomen has been ordered for further investigation. (5) Thyroid nodule: Code(s): E04.1 - Nontoxic single thyroid nodule Category: Medical Plan: The patient reports difficulty swallowing, and a physical exam revealed a possible thyroid nodule. Thyroid function tests will be checked as part of the ordered blood work. If lab results are normal, a swallowing test may be considered. (6) Healthcare maintenance: Code(s): Z00.00 - Encounter for general adult medical examination without abnormal findings Category: Medical Plan: The patient is establishing care and undergoing an annual physical. Comprehensive blood work has been ordered, including a CBC, CMP, lipid panel, magnesium, vitamin B12, vitamin D, TSH, and a PSA level. A urinalysis will also be performed. Referrals were advised for routine eye and dental examinations. A follow-up appointment is scheduled for June to review all test results. Plan Plan Patient was informed and verbally consented to the use of an ambient scribe for clinic note documentation during this visit. 1. Gait Disturbance The patient reports a one-month history of a swaying sensation while standing, without associated dizziness or falls. A CT scan of the head has been ordered to rule out any intracranial abnormalities. The patient was advised to go to the emergency room if the swaying sensation worsens. 2. Left Shoulder Pain The patient has a history of left shoulder pain, previously diagnosed as impingement syndrome. An MRI of the left shoulder will be ordered to further evaluate for a possible muscle tear, pending insurance approval. He can continue to use ibuprofen or Tylenol for pain management. 3. Chronic Abdominal Pain The patient reports chronic left upper quadrant abdominal pain since childhood, with a prior negative endoscopy. A CT scan of the abdomen has been ordered for further investigation. 4. Dysphagia And Suspected Thyroid Nodule The patient reports difficulty swallowing, and a physical exam revealed a possible thyroid nodule. Thyroid function tests will be checked as part of the ordered blood work. If lab results are normal, a swallowing test may be considered. 5. Health Maintenance The patient is establishing care and undergoing an annual physical. Comprehensive blood work has been ordered, including a CBC, CMP, lipid panel, magnesium, vitamin B12, vitamin D, TSH, and a PSA level. A urinalysis will also be performed. Referrals were advised for routine eye and dental examinations. A follow-up appointment is scheduled for June to review all test results. I informed the patient that today's visit would serve as his annual physical. I discussed the plan to order an MRI of his left shoulder, a CT scan of his brain for the gait disturbance, and a CT scan of his abdomen for the chronic pain, explaining that all imaging is subject to insurance approval. I outlined the comprehensive blood work ordered, including CBC, CMP, lipids, vitamins, TSH, and PSA, and provided instructions for fasting. I noted the finding of a possible thyroid nodule and explained that we would start by checking his thyroid function via blood tests. I advised him to schedule routine check-ups with an eye doctor and a dentist. I provided clear return precautions, instructing him to go to the ER if the swaying sensation worsens. We scheduled a follow-up visit in approximately three months (June) to review the results of all the ordered tests, and I confirmed that I would contact him sooner if any results are abnormal or if imaging is not approved. Orders: Orders Influenza [id number] Immunization Today Z23 - Encounter for immunization MR shoulder LT wo con Today M25.512 - Pain in left shoulder Complete Blood Count Auto Diff Today Z00.00 - Encounter for general adult medical examination without abnormal findings Comprehensive [place]. Panel Fast Today Z00.00 - Encounter for general adult medical examination without abnormal findings Hemoglobin A1c Today Z00.00 - Encounter for general adult medical examination without abnormal findings Vitamin B12 and Folate Today Z00.00 - Encounter for general adult medical examination without abnormal findings PSA,Total (Free>4and<10) Today Z00.00 - Encounter for general adult medical examination without abnormal findings CT abdomen pelvis w IV con Today R10.12 - Left upper quadrant pain, R10.32 - Left lower quadrant pain C Reactive Protein Today Z00.00 - Encounter for general adult medical examination without abnormal findings Lipid Panel Today Z00.00 - Encounter for general adult medical examination without abnormal findings Liver Panel Today Z00.00 - Encounter for general adult medical examination without abnormal findings Magnesium Today Z00.00 - Encounter for general adult medical examination without abnormal findings Vitamin D 25-OH Total Today Z00.00 - Encounter for general adult medical examination without abnormal findings UA CC w/rflx Micro + Cult Today Z00.00 - Encounter for general adult medical examination without abnormal findings TSH reflex Free T4 Today Z00.00 - Encounter for general adult medical examination without abnormal findings CT head/brain wo IV con Today R26.81 - Unsteadiness on feet, R26.9 - Unspecified abnormalities of gait and mobility US thyroid Today E04.1 - Nontoxic single thyroid nodule Patient Instructions: - Please go to a laboratory to have your blood drawn. - You must fast for at least 8-10 hours before the blood test, meaning nothing to eat or drink except for water or black coffee with no cream or sugar. - The imaging center will call you to schedule your CT scan of the head, CT scan of the abdomen, and MRI of the left shoulder. - Please schedule appointments for routine check-ups with an eye doctor and a dentist. - Go to the nearest Emergency Room if your feeling of swaying or unsteadiness gets worse. - You have a follow-up appointment scheduled for the first or second week of June to review your test results. - We will call you if any results come back sooner or if there are any issues with insurance approval for your tests.
[2025-04-18 15:04] VITALS: BP 121/58; PULSE 74; RESP 16; TEMP 36.4; O2SAT 98; BMI 27.0
--- OUTSIDE RECORDS SUMMARY | 2025-04-18 19:08 | XMS_ITS | Data Portability ---
Author Organization [facility] Surgeons [facility] Address [address] [place] [address] Assessment No assessment recorded. Plan of Treatment [...] spine rm u/c 1 2024 025 [email or web address] [facility], [address], [place], [address], 5 13:12:59 XR, shoulder, 2 or more view - new pt 4 views left shoulder rm u/c 1 2024 025 [email or web address] [facility], [address], [place], [address], 5 13:12:59 Medication Orders cyclobenzap rine 5 mg tablet 2024 025 tbahgat2 [id number], [address] [facility], [place], [address], 13:12:59 Patient TargetsNo targets recorded. Patient InstructionsNo [...] a4ajBk vP9nXo QUaueC m3YtLR FvZlgJ JJ8mAn HZtai3 8d6893 AC0Klb XWMUKW uKiQtr MwF INTERFACE [facility] [address], [place], [address], 04/05/2025 09:28:30 04/05/2004/05/2025 XR, seth yue, 2 or more view [email or web address]:/ [email or web address] ?Encry pted=s hAaTro YD8dLq bEUv6g %2BXZw aYqtaq 0bqfl% 2Fg9IQ a4ajBk vP9nXo QUaueC m3YtLR FvZlgJ JJ8mAn HZtai3 0q4391 AC0Klb XWMUKW uKiQtr MwF INTERFACE [facility] [address], [place], [address], 04/05/2025 09:28:32 04/05/2004/05/2025 XR, cervi ruy spine , 1 view [email or web address]:/ [email or web address] ?Encry pted=s hAaTro YD8dLq bEUv6g %2BXZw aYqtaq 0bqfl% 2Fg9IQ a4ajBk vP9nXo QUaueC m3YtLR FvZlgJ JJ8mAn HZtai3 9h4448 AC0Klb XWMUqu nKiQtr MwF INTERFACE [facility] [address], [place], [address], 04/05/2025 09:45:51 04/05/20 25 04/05/2025 XR, cervi ruy spine , 1 view http:/ [email or web address] ?Encry pted=s hASuno YD8dLq bEUv6g %2BXZw aYqtaq 0bqfl% 2Fg9IQ a4ajBk vP9nXo QUaueC m3YtLR FvZlgJ JJ8mAn HZtai3 8m0904 AC0Klb XWMUqu nKiQtr MwF INTERFACE [facility] Office [address] [facility] [address], [place], [address], 04/05/2025 09:45:52 Result Notes Documentation Provider Name and Address Organization Details Recorded Time Xr, Shoulder, 2 Or More View : [email or web address]? Encrypted=xpHfEynPV7tMofS Uv6g%0VHNymJtkmo0jvks%2Fg 1FYv0rfLuzI9iDfNMmneAd3Sv VTNrRjoDMZ3fCaOFesg08l489 6QB9IafSTSCQZbImSubUyX Not Available [facility] 04/05/2025 09:28: 31 Xr, Shoulder, 2 Or More View : [email or web address]? Encrypted=idBlWtzMU7pQspB Uv6g%7QGEkyXnoxk6eaka%2Fg 6TTb2cqGrqD5uXvMDxqpJg6Qy ZTSdUnlHWO5gZzXQeib83c593 3KK8AtgLBBGKOfHtZlpYgQ Not Available [facility] 04/05/2025 09:28: 32 Xr, Cervical Spine, 1 View : [email or web address]? Encrypted=uqFfFdaXP2tFsuM Uv6g%5PLZheCobmi0qrxh%2Fg 1ZXw8ogFxlB2sUnYLqrnXs6By OLUhEqtDBV6dPoTBimz84x288 4BI1IcyQEUMuqrWlZdpWsY Not Available [facility] 04/05/2025 09:45: 51 Xr, Cervical Spine, 1 View : [email or web address]? Encrypted=umWcUhbAA0lQogN Uv6g%0QQQujRapfe2aldj%2Fg 5BAb3byJmrX6fNfBNnvoCx9Jk YWKvCicSXR5eRxFEzku93k542 8HQ3EjoRZSKqscYfTyxAcC Not Available [facility] 04/05/2025 09:45: 53 Medical Equipment None Reported. Allergies Allergen ID Allergen Name Allergen Category Reaction Reaction Severity Criticality Documentation Date Start Date Code Code System Note Provider Name and Address Organization Details Recorded Time 199775 amoxicill in medicatio n Not available Not available Not available 04/05/2025 723 RxNorm Jocelyn sandhu [facility] 09:21:42 Medications Name Sig Start Date Stop Date Status Note LastModified by Organization Details LastModified Time prednisone 20 mg tablet TAKE 3 TABLETS BY MOUTH DAILY FOR 4 DAYS active Not Available Not Available No t Available esomeprazole magnesium 40 mg capsule,delay ed release TAKE 1 CAPSULE BY MOUTH TWICE A DAY active Not Available Not Available No t Available methylprednis olone 4 mg tablets in a dose pack TAKE 6 TABLETS ON DAY 1 DIRECTED ON PACKAGE AND DECREASE BY 1 TAB EACH DAY FOR A TOTAL OF 6 DAYS active Not Available Not Available No t [...] ot Available cyclobenzapri ne 5 mg tablet TAKE 1 TABLET BY MOUTH THREE TIMES A DAY FOR 7 DAYS active Not Available Not Available No t Available Vitals Date Recorded Body height Body mass index (BMI) Body weight Provider Name and Address Organization Details Last Updated DateTime 04/05/2025 187.96 cm 30.8 kg/m2 003725.17 g Jocelyngary Mcneal [facility] 04/05/2025 09:57:40 Social History None recorded. Functional Status None recorded. Mental Status None recorded. Family History Nothing Reported. Medical History No medical history recorded. Past Encounters Encounter ID Performer Location Encounter Start Date Encounter Closed Date Diagnosis/Indication Diagnosis SNOMED-CT Code Diagnosis ICD10 Code Diagnosis IMO Codes Diagnosis Note [id number] Yair Thomas PA-C [facility] [place] [address] [place] [address] 04/05/2025 09:15:01 04/12/2025 14:54:15 Pain of left shoulder region 1752070154 M25.512 28548412 Neck pain 81814063 M54.2 70732 Nerve root disorder 7227 4001 M54.12 562080 Health Concerns Section Related Observation LastModified by Organization Detai ls LastModified Time None Recorded Concern Status LastModified by Organization Details LastModified Time None Recorded Advance Directives Directive None Recorded Payers Insurance Date Sequence Insurance Name Policy Number Policy Chowdary Covered Member ID Chowdary Member ID Guarantor Name 04/12/[address] [place] [address] ([facility] [id number] 01 Elroy Izquierdo [id number] Elroy Izquierdo Notes Date Note Type Note Provider Name and Address Organization Details Recorded Time 5 text/htm l I am seeing the patient [...] few days ago. He was seen at [facility] on 04/03/2025. He was given prednisone and Robaxin but has not been able to fern picker the Robaxin from his pharmacy.. He reports no relief with the steroids lief. He has scheduled follow-up with [facility] P ast family, medical, social history and review of systems has been reviewed, updated and is located in the patient s chart. E xamination: Cervical - A+O x3 non antalgicNo TTP of the cervical spinous processesNo palpable step offNo paracervical muscle TTPLimited ROM in all planes+ Left Spurling testFROM elbow, forearm, wrist, and digits5/5 stove polisher strengthIntact R,M,U nerve motor and sensory function [...] X -rays ordered, obtained and reviewed at [facility] 4 views right shoulder reveals type I/II [...] ice and heat. He will follow-up with [facility] as he has a scheduled appointment on 04/20/2025 Yair Thomas PA-C [address] [place] [address] [address], [place], [address], [facility] 04/05/2025 09:54:27
--- OUTSIDE RECORDS SUMMARY | 2025-04-18 19:08 | XMS_ITS | Clinical Summary ---
Author Organization [facility] Address [address] [place] [address] Phone Care Team Providers Care Machine Tack Puller Name Role Phone Unavailable Primary Care Provider [...] w/ his new PCP in 6 weeks [facility] visit on 08/18/2022 for abdominal pain, [...] Plan (03/07/2024 4:12 PM EDT): Followed by [facility] for abdominal pain, postprandial abdominal bloating and weight loss. Dx with GERD - avoid dietary triggers. normal EGD with negative biopsy for celiac on 01/23. Continue Prilosec. Discontinue vaping, marijuana, and alcohol use. Continue Esomeprazole 40 mg bid. f/u with GI in August. Assessment & Plan (03/02/2023 9:22 AM EDT): [facility] visit on 08/18/2022 for abdominal pain, [...] *Dental caries, No family history of *Sudden /[place] under 55, Family history of Hyperlipidemia, No family history of *CVA/Stroke Paternal Grandfather Paterna l grandfather: Coronary artery disease, premature Paternal Grandmother Sister Brenda Izquierdo Alive Sister: dEouard e and well Social History Tobacco Use [...]
--- OUTSIDE RECORDS SUMMARY | 2025-04-18 19:08 | XMS_ITS | Encounter Summary ---
Author Organization [facility] Address [address] [place] [address] Phone Care Team Providers Care Acute Care Physician Name Role Phone Dalila Snyder MD Primary Care Provider [phone] Encounter Details Date Type Department Care Team (Late st Contact Info) Description 02/05/2017 Conversion Encounter [facility] [address] [place] [address] Social History Tobacco Use Types Packs/Day Years [...] on filedocumented in this encounter Care Teams Acute Care Physician Relationship Specialty Start Date End Date Dalila Snyder MD [address] [place] [address] PCP - General Pediatrics 08/07/22 04/06/24 documented as of this encounter
== END 2025-04-18 15:35 | disposition home or self-care (01) ==
LOC: HO.HMCSH 14:42
PROVIDERS: Visit Provider Physician Assistant Medical
DX: Z00.00 Encounter for general adult medical examination without abnormal findings (principal); R26.9 Unspecified abnormalities of gait and mobility; M25.512 Pain in left shoulder; R10.9 Unspecified abdominal pain; G89.29 Other chronic pain; E04.1 Nontoxic single thyroid nodule; Z23 Encounter for immunization

== ENCOUNTER → 2025-04-18 14:42 | Outpatient (BNVA) | payer OTHER, SELFPAY | PROVIDERS: Visit Provider Physician Assistant Medical | DX: Z00.00 Encounter for general adult medical examination without abnormal findings (principal); M54.9 Dorsalgia, unspecified; R10.12 Left upper quadrant pain; G89.29 Other chronic pain; R26.9 Unspecified abnormalities of gait and mobility; M25.512 Pain in left shoulder; E04.1 Nontoxic single thyroid nodule; Z28.21 Immunization not carried out because of patient refusal; R13.10 Dysphagia, unspecified | CPT/HCPCS: 96127 ==

== ENCOUNTER 2025-04-21 13:05 | Outpatient (REF) | payer OTHER, SELFPAY ==
--- OUTSIDE RECORDS SUMMARY | 2025-04-21 14:12 | XMS_ITS | Data Portability ---
Author Organization [facility] Address [address] [place] [address] Assessment No assessment recorded. Plan of Treatment [...] spine rm u/c 1 2024 025 [email or web address] [facility], [address], [address], [place], [address], 5 13:12:59 XR, shoulder, 2 or more view - new pt 4 views left shoulder rm u/c 1 2024 025 [facility], [address], [place], [address], 5 13:12:59 Medication Orders cyclobenzap rine 5 mg tablet 2024 025 [id number], [address] [facility], [place], [address], 5 05:02:10 Patient TargetsNo targets recorded. Patient InstructionsNo instructions recorded. Reason for Referral Physical Therapist Referral for Nerve root disorder cervical stabilization program Referring Physician: Yair Thomas, Orthopedic Surgery, Encounter Date: 04/05/2025 Results Created Date Observation Date Name Description Value Unit Range Abnormal Flag Note LastModifiedBy Organization Detail LastModifiedTime 04/05/2004/05/2025 XR, seth yue, 2 or more view http:/ [email or web address] ?Encry pted=s hAaTro YD8dLq bEUv6g %2BXZw aYqtaq 0bqfl% 2Fg9IQ a4ajBk vP9nXo QUaueC m3YtLR FvZlgJ JJ8mAn HZtai3 5g7172 AC0Klb XWMUKW uKiQtr MwF INTERFACE [facility] [address], [place], [address], 04/05/2025 09:28:30 04/05/2004/05/2025 XR, seth yue, 2 or more view http:/ [email or web address] ?Encry pted=s hAaTro YD8dLq bEUv6g %2BXZw aYqtaq 0bqfl% 2Fg9IQ a4ajBk vP9nXo QUaueC m3YtLR FvZlgJ JJ8mAn HZtai3 3v0913 AC0Klb XWMUKW uKiQtr MwF INTERFACE [facility] [address], [place], [address], 04/05/2025 09:28:32 04/05/20 25 04/05/2025 XR, cervi ruy spine , 1 view [email or web address]:/ [email or web address] ?Encry pted=s hAaTro YD8dLq bEUv6g %2BXZw aYqtaq 0bqfl% 2Fg9IQ a4ajBk vP9nXo QUaueC m3YtLR FvZlgJ JJ8mAn HZtai3 0f7675 AC0Klb XWMUqu nKiQtr MwF INTERFACE [facility] [address], [place], [address], 04/05/2025 09:45:51 04/05/20 25 04/05/2025 XR, cervi ruy spine , 1 view http:/ [email or web address] ?Encry pted=s hASuno YD8dLq bEUv6g %2BXZw aYqtaq 0bqfl% 2Fg9IQ a4ajBk vP9nXo QUaueC m3YtLR FvZlgJ JJ8mAn HZtai3 3w5073 AC0Klb XWMUqu nKiQtr MwF INTERFACE [facility] Office [address] [facility] [address], [place], [address], 04/05/2025 09:45:52 Result Notes Documentation Provider Name and Address Organization Details Recorded Time Xr, Shoulder, 2 Or More View : [email or web address]? Encrypted=vtMaCmxUZ9xSzvN Uv6g%8EFJoaVrrjj7mztw%2Fg 4PRj6moViuO2kJtPNiqsPl6Vb CIUuDxpJYN9uRgQFwts76i119 4HH6ZluXUNIJElTfKvlBvR Not Available [facility] 04/05/2025 09:28: 31 Xr, Shoulder, 2 Or More View : [email or web address]? Encrypted=gxBdNiqPQ3vOxfJ Uv6g%1SJBfvRabtc1zybg%2Fg 9PVl4wuZmuL6kNqSFggwRi5Nr JMXcAddLAC4dRpQNzrz88e593 2QF5CodIGIHZVsLuWqyRwS Not Available [facility] 04/05/2025 09:28: 32 Xr, Cervical Spine, 1 View : [email or web address] Encrypted=kvOoUwvSD5aFvfS Uv6g%6DSCfeXtxrv1uksf%2Fg 4FVi5mgIcgA4fFsIDqgoOt8Qu MBQzIzsWLM7wIeRUveu84e054 1UM2GyhMNTZlngTqTggOgQ Not Available [facility] 04/05/2025 09:45: 51 Xr, Cervical Spine, 1 View : [email or web address] Encrypted=piDpZhtHP7wUfrM Uv6g%0OTPocVwtbn9dcbf%2Fg 4PQu9xrKqlZ6gTyYVevtBz4Xk BSMhJieDZB8eFdHIlnd45a792 4ZL7KywODCYmzfQgGysFvK Not Available [facility] 04/05/2025 09:45: 53 Medical Equipment None Reported. Allergies Allergen ID Allergen Name Allergen Category Reaction Reaction Severity Criticality Documentation Date Start Date Code Code System Note Provider Name and Address Organization Details Recorded Time 763745 amoxicill in medicatio n Not available Not available Not available 04/05/2025 723 RxNorm Jocelyn sandhu [place] - [facility] 09:21:42 Medications Name Sig Start Date Stop Date Status Note LastModified by Organization Details LastModified Time prednisone 20 mg tablet TAKE 3 TABLETS BY MOUTH DAILY FOR 4 DAYS active Not Available Not Available No t Available esomeprazol e magnesium 40 mg capsule,del ayed release TAKE 1 CAPSULE BY MOUTH TWICE A DAY active Not Available Not Available No t Available methylpredn isolone 4 mg tablets in a dose pack TAKE 6 TABLETS ON DAY 1 DIRECTED ON PACKAGE AND DECREASE BY 1 TAB EACH DAY FOR A TOTAL OF 6 DAYS active Not Available Not Available No t Available albuterol sulfate HFA 90 mcg/actuati on aerosol inhaler INHALE 2 PUFFS INTO LUNGS EVERY 4 TO 6 HOURS FOR SHORTNESS OF BREATH OR WHEEZING active Not Available Not Available No t Available ondansetron 4 mg disintegrat ing tablet TAKE 1 TABLET BY MOUTH EVERY 6 HOURS FOR NAUSEA AND VOMITING FOR 3 DAYS active Not Available Not Available No t Available cyclobenzap rine 5 mg tablet Take 1 tablet 3 times a day by oral route for 7 days. 04/19 completed Not Available Not Available Not Available Vitals Date Recorded Body height Body mass index (BMI) Body weight Provider Name and Address Organization Details Last Updated DateTime 04/05/2025 187.96 cm 30.8 kg/m2 930122.17 g Jocelyn Mcneal [place] - [facility] 04/05/2025 09:57:40 Social History None recorded. Functional Status None recorded. Mental Status None recorded. Family History Nothing Reported. Medical History No medical history recorded. Past Encounters Encounter ID Performer Location Encounter Start Date Encounter Closed Date Diagnosis/Indication Diagnosis SNOMED-CT Code Diagnosis ICD10 Code Diagnosis IMO Codes Diagnosis Note [id number] Yair Thomas PA-C [facility] [place] [address] [address] 04/05/2025 09:15:01 04/12/2025 14:54:15 Pain of left shoulder region 7243909335 M25.512 27023288 Neck pain 98514598 M54.2 97810 Nerve root disorder 7227 4001 M54.12 065344 Health Concerns Section Related Observation LastModified by Organization Detai ls LastModified Time None Recorded Concern Status LastModified by Organization Details LastModified Time None Recorded Advance Directives Directive None Recorded Payers Insurance Date Sequence Insurance Name Policy Number Policy Chowdary Covered Member ID Chowdary Member ID Guarantor Name 04/12/2025 1 [facility] [id number] Elroy Izquierdo [id number] Elroy Izquierdo Notes Date Note Type Note [...] few days ago. He was seen at [facility] on 04/03/2025. He was given prednisone and Robaxin but has not been able to picker/puller the Robaxin from his pharmacy.. He reports no relief with the steroids lief. He has scheduled follow-up with [facility] P ast family, medical, social history and review of systems has been reviewed, updated and is located in the patient s chart. E xamination: Cervical - A+O x3 non antalgicNo TTP of the cervical spinous processesNo palpable step offNo paracervical muscle TTPLimited ROM in all planes+ Left Spurling testFROM elbow, forearm, wrist, and digits5/5 market research associate strengthIntact R,M,U nerve motor and sensory function [...] X -rays ordered, obtained and reviewed at [facility] 4 views right shoulder reveals type [...] ice and heat. He will follow-up with [facility] as he has a scheduled appointment on 04/20/2025 Yair Thomas PA-C [address] [place] [address] [address], [place], [address], [facility] 04/05/2025 09:54:27
--- OUTSIDE RECORDS SUMMARY | 2025-04-21 14:12 | XMS_ITS | Encounter Summary ---
Author Organization [facility] Address [address] [place] [address] Phone Care Team Providers Care Oracle Database Developer Name Role Phone Dalila Snyder MD Primary Care Provider [phone] Encounter Details Date Type Department Care Team (Late st Contact Info) Description 02/05/2017 Conversion Encounter [facility] [place] [address] [place] [address] Social History Tobacco Use Types Packs/Day Years [...] on filedocumented in this encounter Care Teams Oracle Database Developer Relationship Specialty Start Date End Date Dalila Snyder MD [address] [place] [address] PCP - General Pediatrics 08/07/22 04/06/24 documented as of this encounter
--- OUTSIDE RECORDS SUMMARY | 2025-04-21 14:12 | XMS_ITS | Clinical Summary ---
Author Organization [facility] Address [address] [place] [address] Phone Care Team Providers Care Mortgage Protection Specialist Name Role Phone Unavailable Primary Care [...] w/ his new PCP in 6 weeks [facility] visit on 08/18/2022 for abdominal pain, [...] Plan (03/07/2024 4:12 PM EDT): Followed by [facility] for abdominal pain, postprandial abdominal bloating and weight loss. Dx with GERD - avoid dietary triggers. normal EGD with negative biopsy for celiac on 01/23. Continue Prilosec. Discontinue vaping, marijuana, and alcohol use. Continue Esomeprazole 40 mg bid. f/u with GI in August. Assessment & Plan (03/02/2023 9:22 AM EDT): [facility] visit on 08/18/2022 for abdominal pain, [...] & unclear signficance; pt place on H2 muan and advise f/u w/ his new PCP [...] *Dental caries, No family history of *Sudden /[place] under 55, Family history of Hyperlipidemia, No [...]
[2025-04-21 16:07] LABS: MANUAL DIFF FLAG NO
[2025-04-21 16:12] LABS: Hematocrit 42.6 % (42.0-52.0); Hemoglobin 14.6 g/dl (14.0-18.0); Imm Gran Abs Auto 0.02 X10*3/uL (0.00-0.03); Imm Gran Pct Auto 0.3 % (0.0-0.4); Lymphocytes Absolute Auto 2.2 X10*3/uL (1.2-4.9); Mean Corpuscular HGB Conc 34.3 g/dl (31.0-36.0); Mean Corpuscular Hemoglobin 29.1 pg (27.0-33.0); Mean Corpuscular Volume 85.0 fL (80.0-98.0); NRBC Abs Auto 0.000 X10*3/uL (0.0-0.012); NRBC Pct Auto 0.0 /100WBC (0.0-0.2); Platelet Count 240 X10*3/uL (160-400); Red Blood Count 5.01 X10*6/uL (4.60-5.80); White Blood Count 7.0 X10*3/uL (4.8-10.8)
[2025-04-21 16:19] LABS: Appearance Urine Clear; Glucose Urine UA Negative (Negative); PH 5.5 (5.0-9.0); Specific Gravity - Urine 1.020 (1.005-1.025)
[2025-04-21 16:39] LABS: Anion Gap 13 (12-20); Aspartate Amino Transferase 26 U/L (5-37); Blood Urea Nitrogen 16 mg/dL (9-16); Calcium 10.3 mg/dL (8.4-10.2); Carbon Dioxide 26 mmol/L (22-29); Chloride 106 mmol/L (96-108); Estimated Glomerular Filt Rate > 60; Magnesium 2.3 mg/dL (1.6-2.6); Potassium 4.1 mmol/L (3.3-5.1); Sodium 141 mmol/L (135-145); Total Protein 8.6 g/dL (6.5-8.0)
[2025-04-21 16:40] LABS: Albumin Level 5.4 g/dL (3.5-5.0); Alkaline Phosphatase 60 U/L (39-117); Cholesterol 224 mg/dL (<200); HDL Cholesterol 64 mg/dL (>40); Triglycerides 132 mg/dL (<150)
[2025-04-21 16:44] LABS: PSA,Total (Free>4and<10) 0.52 ng/mL (0.00-4.00)
[2025-04-21 16:53] LABS: Alanine Aminotransferase 36 U/L (0-40)
[2025-04-21 16:59] LABS: Folate 11.7 ng/mL (> or = 4.0); Vitamin B12 470 pg/mL (200-900)
== END 2025-04-21 13:06 | disposition home or self-care (01) ==
LOC: HO.HMGCLDS 13:05
PROVIDERS: PCP Physician Assistant Medical; Visit Provider Physician Assistant Medical
DX: Z00.00 Encounter for general adult medical examination without abnormal findings (principal); Z13.6 Encounter for screening for cardiovascular disorders; Z13.1 Encounter for screening for diabetes mellitus; Z12.5 Encounter for screening for malignant neoplasm of prostate; Z13.29 Encounter for screening for other suspected endocrine disorder
CPT/HCPCS: 36415; 80053; 80061; 80076; 81003; 82248; 82306; 82607; 82746; 83036; 83735; 84153; 84443; 85025; 86140